=== PATIENT | female | born 1980 | race Caucasian/White ===

== ENCOUNTER 2025-03-03 06:00 | Day surgery (SDC) | payer OTHER ==
[2025-02-25 12:25] VITALS: BP 170/110
[2025-02-25 12:43] LABS: BASO % 0.9 % (0.1-1.2); EOS # 0.24 (0.04-0.54); EOS % 2.6 % (0.7-7.0); HEMATOCRIT 34.3 % (34.1-44.9); HEMOGLOBIN 10.1 g/dL (11.2-15.7); LYMPH # 3.22 (1.18-3.74); LYMPH % 34.5 % (19.3-53.1); MEAN CORPUSCULAR HEMOGLOBIN 19.7 pg (25.6-32.2); MONO # 0.61 (0.24-0.82); MONO % 6.5 % (4.7-12.5); NEUT # 5.17 (1.56-6.13); NEUT % 55.3 % (34.0-71.1); PLATELET COUNT 306 K/uL (163-369); RED BLOOD COUNT 5.13 M/uL (3.93-5.22)
[2025-02-25 12:51] LABS: PARTIAL THROMBOPLASTIN TIME 27.3 SECONDS (22.0-34.0); PROTHROMBIN TIME 10.9 SECONDS (9.0-11.5)
[2025-02-25 13:12] LABS: ALBUMIN 3.8 gm/dL (3.4-5.0); BILIRUBIN TOTAL 0.46 mg/dL (0.3-1.2); CALCIUM 8.9 mg/dL (8.5-10.1); CREATININE SERUM 0.55 mg/dL (0.55-1.02); GFR 121.21; POTASSIUM 3.63 mEq/L (3.5-5.1); TOTAL PROTEIN 7.8 gm/dL (6.4-8.2)
[~2025-03-03] VITALS: Ht 162.6 cm; Wt 71.7 kg
[~2025-03-03 06:00] MED LIST: DOLOGESIC CAPLE1 TAB PO; PHENAGIL TABLE1 EACH PO
[2025-03-03] MEDS ORDERED: POVIDONE-IODINE 118 ML BOTT TOP ONE (09:22)
[2025-03-03] MEDS ORDERED: MORPHINE SULFATE 4 MG/ML VIAL IV PRN (11:15)
[2025-03-03] MEDS ORDERED: PROMETHAZINE HCL 50 MG/ML AMPUL IM ONE (11:15)
[2025-03-03] MEDS ORDERED: MORPHINE SULFATE 4 MG/ML VIAL IV ONE ×2 (11:45→12:15)
[2025-03-03] MEDS ORDERED: hydrALAZINE HCL 20 MG VIAL ONE (12:28)
== END 2025-03-03 16:00 | disposition home or self-care (01) ==
LOC: CIR.AMB 06:00
PROVIDERS: ATTEND Obstetrics & Gynecology
DX: D06.9 Carcinoma in situ of cervix, unspecified (principal)